=== PATIENT | female | born 1955 | race Caucasian/White ===

== ENCOUNTER → 2019-10-31 | Day surgery (SDC) | payer MEDICARE, OTHER ==
[2019-10-27 15:32] LABS: BASOPHILS # (AUTO) 0.1 (0.0-0.1); EOSINOPHILS # (AUTO) 0.2 (0.0-0.4); EOSINOPHILS % 3.8 % (0.0-6.0); HEMATOCRIT 40.5 % (34.2-44.1); HEMOGLOBIN 13.1 g/dL (12.0-16.0); LYMPHOCYTES % 41.7 % (18.0-39.1); MEAN CORPUSCULAR HEMOGLOBIN 30.6 pg (28-32); MEAN CORPUSCULAR HGB CONC 32.3 g/dL (31-35); MEAN CORPUSCULAR VOLUME 94.6 fL (81-99); MONOCYTES # (AUTO) 0.5 (0.2-0.8); MONOCYTES % 9.6 % (4.4-11.3); NEUTROPHILS # (AUTO) 2.1 (2.1-6.9); NEUTROPHILS % 43.7 % (38.7-80.0); PLATELET COUNT 226 x10e3/uL (140-360); RED BLOOD COUNT 4.28 x10e6/uL (3.6-5.1); RED CELL DISTRIBUTION WIDTH 14.2 % (11.7-14.4)
[~2019-10-31] MED LIST: ASPIRIN325 MG PO; CYCLOBENZAPRINE10 MG PO; EXCEDRIN EXTRA1 EAC1 PO; HYOSCYAMINE 0.125 MG TAB ONE; LEVOTHYROXINE50 MCG PO; LIDOCAINE HCL 2% LOCAL INJ 5 ML SDV VIAL INJ ONE; LORTAB 7.5-5001 EACH PO; NABUMETONE500 MG PO; PREMARIN1.25 MG PO; PREVACID15 MG PO; PROPOFOL IV EMULSION 10 MG/ML 20 ML VIAL ONE; PROPRANOLOL HCL40 MG PEG; SUMATRIPTAN SUC50 MG PO; ULTRAM 50MG50 MG PO; XARELTO10 MG PO; ZYRTEC10 M3 PO; [UNRECOGNIZED DRUG - OTHER] PO; [UNRECOGNIZED DRUG - OTHER] PO
[2019-10-31 08:50] VITALS: BP 120/79
--- NOTE | 2019-10-31 10:38 | Operative Report ---
DATE OF PROCEDURE: 10/31/2019 SURGEON: Ernie Chaney MD PROCEDURE: EGD with biopsies and colonoscopy. INDICATIONS FOR EGD: Status post [place]-en-Y, history of vomiting. INDICATIONS FOR COLONOSCOPY: Colorectal cancer screening, mother with rectal cancer, personal history of colon polyps. MEDICATIONS: The patient was done under MAC. Please see anesthesiologist's note. PROCEDURE IN DETAIL: With the patient in left lateral decubitus position, a flexible fiberoptic Olympus gastroscope was introduced into the esophagus under direct visualization without any difficulty. There was some patchy erythema noted in the distal esophagus. The scope was then advanced with ease into the stomach and the patient is status post [place]-Y. Anastomosis was intact. There was some patchy inflammatory changes noted in the gastric stump and biopsies were obtained. The enteric loop was patent. The scope was then retroflexed in the gastric stump and some postoperative changes were noted. The scope was then straightened out, it was subsequently withdrawn. The patient tolerated the procedure well. IMPRESSION: 1. Distal esophagitis, mild. 2. Status post [place]-en-Y, anastomosis, patent and intact. 3. Gastric stump gastritis, biopsied. Biopsies sent to stain for Helicobacter pylori. PLAN: Follow up histology. Initiate Protonix 40 mg one p.o. q.a.m. before meals. The patient was then turned around and after adequate lubrication of the anal canal, a flexible fiberoptic Olympus colonoscope was inserted into the rectum with ease and advanced all the way to the cecum. It was then withdrawn slowly. Mucosa overlying the cecum, ascending colon, transverse colon, and descending colon appeared to be within normal limits. Some minimal diverticulosis was noted in the distal descending and the sigmoid colon. The rectum appeared to be within normal limits. The scope was then retroflexed into the distal rectum and small internal hemorrhoids were noted, none of which was actively bleeding. The scope was then straightened out, it was subsequently withdrawn. The patient tolerated the procedure well. IMPRESSION: 1. Diverticulosis, minimal. 2. Internal hemorrhoids, none actively bleeding. PLAN: Initiate high-fiber, low-fat diet. Initiate high-fiber supplement. The patient might benefit from a followup colonoscopy in 3 to 5 years. Ernie Chaney MD [facility] [place][id number] cc: Ashkan Casillas DO
== END | disposition home or self-care (01) ==
LOC: ENDO 06:45
PROVIDERS: ATTEND Internal Medicine Gastroenterology
DX: K29.70 Gastritis, unspecified, without bleeding (principal); Z86.010 Personal history of colon polyps; K20.9 Esophagitis, unspecified; K57.30 Diverticulosis of large intestine without perforation or abscess without bleeding; K21.9 Gastro-esophageal reflux disease without esophagitis; K59.00 Constipation, unspecified; K64.8 Other hemorrhoids; K85.90 Acute pancreatitis without necrosis or infection, unspecified; Z98.84 Bariatric surgery status; G47.33 Obstructive sleep apnea (adult) (pediatric); M06.9 Rheumatoid arthritis, unspecified; J30.2 Other seasonal allergic rhinitis; T78.49XA Other allergy, initial encounter; Z88.6 Allergy status to analgesic agent; Z88.8 Allergy status to other drugs, medicaments and biological substances; Z01.810 Encounter for preprocedural cardiovascular examination; Z01.812 Encounter for preprocedural laboratory examination; Z11.59 Encounter for screening for other viral diseases; Z79.82 Long term (current) use of aspirin; Z80.0 Family history of malignant neoplasm of digestive organs
CPT/HCPCS: 43239; G0105; 36415; 45378; 85025; 93005; J2001; U0002

== ENCOUNTER 2021-01-07 10:44 | Inpatient (IN) | payer MEDICARE ==
[~2021-01-07] VITALS: Ht 165.1 cm; Wt 72.6 kg
[2021-01-07] VITALS (7 sets, daily range): BP systolic 123–142; BP diastolic 77–80
[~2021-01-07 10:44] MED LIST changes: -HYOSCYAMINE 0.125 MG TAB ONE; -LIDOCAINE HCL 2% LOCAL INJ 5 ML SDV VIAL INJ ONE; -PROPOFOL IV EMULSION 10 MG/ML 20 ML VIAL ONE
[2021-01-07] MEDS ORDERED: SODIUM CHLORIDE 0.9% 1000ML 1,000 ML IV STA (10:57)
[2021-01-07] MEDS ORDERED: ONDANSETRON HCL INJ 2MG/ML 2ML 2 MG/ML VIAL IV STA (10:57)
[2021-01-07] MEDS ORDERED: Morphine 4mg Syringe 4 MG/ML INJ IV STA (10:57)
[2021-01-07] MEDS ORDERED: SODIUM CHLORIDE 0.9% 1000ML 1,000 ML ONE ×2 (11:13→11:19)
[2021-01-07] MEDS ORDERED: Morphine 4mg Syringe 4 MG/ML INJ ONE (11:18)
[2021-01-07] MEDS ORDERED: ONDANSETRON HCL INJ 2MG/ML 2ML 2 MG/ML VIAL ONE (11:18)
[2021-01-07] MEDS ORDERED: PIPERACILLIN/TAZOBACTAM 4.5 GM in SODIUM CHLORIDE 0.9% 100 ML IV ONE (12:45)
[2021-01-07] MEDS ORDERED: PIPERACILLIN/TAZO 4.5 GM 100 ML IV ONE (13:00)
[2021-01-07] MEDS ORDERED: SODIUM CHLORIDE 0.9% 50ML 50 ML ONE (13:41)
[2021-01-07] MEDS ORDERED: IOPAMIDOL 370 MG/ML 200 ML INFUS..BTL INJ ONE (13:42)
[2021-01-07] MEDS ORDERED: PIPERACILLIN/TAZOBACTAM SOD 2.25 GM VIAL ONE (14:14)
[2021-01-07] MEDS: SODIUM CHLORIDE 0.9% 1000ML 1,000 ML IV SCH ×2 (14:17→15:47)
[2021-01-07] MEDS: Morphine 4mg Syringe 4 MG/ML INJ IV PRN ×3 (15:47→23:52)
[2021-01-07] MEDS: ONDANSETRON HCL INJ 2MG/ML 2ML 2 MG/ML VIAL IV PRN ×4 (15:47→23:52)
[2021-01-07] MEDS ORDERED: BENZOCAINE/TETRACAINE/BUTAMBEN AERO SPRAY 56 GM CAN TOP ONE (16:15)
[2021-01-07] MEDS ORDERED: CHLORASEPTIC SPRAY 177 ML BTL MM PRN (18:00)
[2021-01-07] MEDS ORDERED: CEPACOL SORE THROAT LOZENGES PO PRN (18:00)
[2021-01-07] MEDS: KCL 20MEQ/.9 SOD CHL 1,000 ML IV SCH (19:45)
[2021-01-07] MEDS ORDERED: SODIUM CHLORIDE 0.9% 250ML IRRIG IR ONE (20:00)
[2021-01-08] VITALS (7 sets, daily range): BP systolic 131–148; BP diastolic 71–85
[2021-01-08] MEDS: Morphine 4mg Syringe 4 MG/ML INJ IV PRN ×5 (04:10→20:55)
[2021-01-08] MEDS: ONDANSETRON HCL INJ 2MG/ML 2ML 2 MG/ML VIAL IV PRN ×4 (04:10→17:37)
[2021-01-08] MEDS: KCL 20MEQ/.9 SOD CHL 1,000 ML IV SCH ×2 (05:55→13:49)
[2021-01-08 08:02] LABS: BASOPHILS % 0.3 % (0.0-1.0); HEMATOCRIT 37.5 % (34.2-44.1); HEMOGLOBIN 11.9 g/dL (12.0-16.0); LYMPHOCYTES # (AUTO) 0.5 (1.0-3.2); LYMPHOCYTES % 7.8 % (18.0-39.1); MEAN CORPUSCULAR HEMOGLOBIN 31.6 pg (28-32); MEAN CORPUSCULAR HGB CONC 31.7 g/dL (31-35); MEAN CORPUSCULAR VOLUME 99.5 fL (81-99); MONOCYTES # (AUTO) 0.4 (0.2-0.8); MONOCYTES % 5.6 % (4.4-11.3); NEUTROPHILS # (AUTO) 5.4 (2.1-6.9); NEUTROPHILS % 85.8 % (38.7-80.0); PLATELET COUNT 208 x10e3/uL (140-360); RED BLOOD COUNT 3.77 x10e6/uL (3.6-5.1); RED CELL DISTRIBUTION WIDTH 13.2 % (11.7-14.4)
[2021-01-08 08:29] LABS: ALBUMIN 3.6 g/dL (3.5-5.0); ALBUMIN/GLOBULIN RATIO 1.2 (0.8-2.0); ANION GAP 15.9 mmol/L (8-16); CALCIUM 8.5 mg/dL (8.4-10.2); CREATININE, SERUM 0.88 mg/dL (0.57-1.11); POTASSIUM 4.9 mmol/L (3.5-5.1)
[2021-01-08] MEDS: SUMATRIPTAN SUCCINATE 6 MG/0.5 ML VIAL SC PRN ×3 (13:29→22:20)
[2021-01-08] MEDS ORDERED: SODIUM CHLORIDE 0.9% 1000ML 1,000 ML ONE (20:56)
[2021-01-08] MEDS: SODIUM CHLORIDE 0.9% 1000ML 1,000 ML IV SCH (20:56)
[2021-01-08] MEDS ORDERED: SUMATRIPTAN SUCCINATE 6 MG/0.5 ML VIAL ONE (21:34)
[2021-01-09] VITALS (7 sets, daily range): BP systolic 98–157; BP diastolic 72–91
[2021-01-09] MEDS ORDERED: PROMETHAZINE 25MG/ NS 50ML (IV) IV ONE (01:30)
[2021-01-09] MEDS ORDERED: DIPHENHYDRAMINE HCL INJ 50 MG/ML VIAL IV ONE (01:30)
[2021-01-09] MEDS ORDERED: KETOROLAC TROMETHAMINE 60 MG/2 ML VIAL IM ONE (01:30)
[2021-01-09] MEDS: SODIUM CHLORIDE 0.9% 1000ML 1,000 ML IV SCH ×3 (04:38→20:43)
[2021-01-09 06:48] LABS: BASOPHILS % 0.4 % (0.0-1.0); EOSINOPHILS % 0.4 % (0.0-6.0); HEMATOCRIT 37.9 % (34.2-44.1); HEMOGLOBIN 12.1 g/dL (12.0-16.0); LYMPHOCYTES # (AUTO) 0.9 (1.0-3.2); MEAN CORPUSCULAR HEMOGLOBIN 32.3 pg (28-32); MEAN CORPUSCULAR HGB CONC 31.9 g/dL (31-35); MEAN CORPUSCULAR VOLUME 101.1 fL (81-99); MONOCYTES # (AUTO) 0.5 (0.2-0.8); NEUTROPHILS # (AUTO) 5.2 (2.1-6.9); NEUTROPHILS % 76.9 % (38.7-80.0); PLATELET COUNT 195 x10e3/uL (140-360); RED BLOOD COUNT 3.75 x10e6/uL (3.6-5.1); RED CELL DISTRIBUTION WIDTH 13.4 % (11.7-14.4)
[2021-01-09 07:22] LABS: ALBUMIN 3.6 g/dL (3.5-5.0); ALBUMIN/GLOBULIN RATIO 1.1 (0.8-2.0); ANION GAP 13.2 mmol/L (8-16); CALCIUM 8.2 mg/dL (8.4-10.2); CREATININE, SERUM 0.82 mg/dL (0.57-1.11); POTASSIUM 4.2 mmol/L (3.5-5.1)
[2021-01-09] MEDS ORDERED: KETOROLAC TROMETHAMINE 30 MG/ML VIAL IV PRN (07:30)
[2021-01-09] MEDS: SUMATRIPTAN SUCCINATE 6 MG/0.5 ML VIAL SC PRN (11:07)
[2021-01-09] MEDS: KETOROLAC TROMETHAMINE 30 MG/ML VIAL IV PRN (20:43)
[2021-01-10] VITALS (7 sets, daily range): BP systolic 125–157; BP diastolic 72–85
[2021-01-10] MEDS: SODIUM CHLORIDE 0.9% 1000ML 1,000 ML IV SCH ×3 (06:50→22:41)
[2021-01-10] MEDS: KETOROLAC TROMETHAMINE 30 MG/ML VIAL IV PRN (06:51)
[2021-01-10] MEDS: SUMATRIPTAN SUCCINATE 6 MG/0.5 ML VIAL SC PRN ×2 (16:10→22:33)
[2021-01-11] VITALS: BP 140/74
[2021-01-11 04:00] VITALS: BP 146/75
[2021-01-11 07:26] VITALS: BP 141/78
[2021-01-11 07:57] VITALS: BP 141/78
[2021-01-11 11:33] VITALS: BP 142/80
[2021-01-11 20:00] VITALS: BP 129/90
== END 2021-01-11 13:44 | disposition home or self-care (01) | DRG 390 ==
LOC: FSED 10:59 → ERHOLD 12:41 → MED/SURG 15:37
DX: K91.30 Postprocedural intestinal obstruction, unspecified as to partial versus complete (principal); I10 Essential (primary) hypertension; G43.909 Migraine, unspecified, not intractable, without status migrainosus; Z20.822 Contact with and (suspected) exposure to COVID-19
CPT/HCPCS: 36415; 70450; 74018; 74019; 74177; 80053; 80076; 81003; 84484; 85025; 96360; 96361; 99284; J1200; J1885; J2270; J2405; J2543; J2550; J3030; J7030; Q9967; U0002

== ENCOUNTER → 2023-04-12 | Outpatient (REF) | payer MEDICARE | LOC: MRI 07:36 | PROVIDERS: ATTEND Family Medicine | DX: S46.911D Strain of unspecified muscle, fascia and tendon at shoulder and upper arm level, right arm, subsequent encounter (principal) ==